=== PATIENT | male | born 1960 | race Caucasian/White ===

== ENCOUNTER 2019-09-24 14:43 | Emergency (ER) | payer OTHER ==
[2019-09-24 14:58] VITALS: BP 178/112
--- NOTE | 2019-09-24 15:43 | UC ---
Hand/Wrist HPI - HPI Summary HPI Summary: Patient is a 58yo male presenting with R thumb pain and laceration after it was crushed by a cement chute on a cement truck at work. States he was wearing thick gloves. Patient states that it bled immediately and felt sharp shooting pain. Denies numbness and tingling. Currently notes dull throbbing pain 4/10. Denies decreased ROM. Denies swelling. - History Of Current Complaint Chief Complaint: UCLaceration Stated Complaint: FINGER CRUSHED AT WORK Hx Obtained From: Patient Onset/Duration: Sudden Onset Severity Currently: Mild Pain Intensity: 4 Pain Scale Used: 0-10 Numeric - Allergies/Home Medications Allergies/Adverse Reactions: Allergies Allergy/AdvReac Type Severity Reaction Status Date / Time No Known Allergies Allergy Verified 09/24/19 14:58 Home Medications: Home Medications methylPREDNISolone TAB* [Medrol TAB*] 1 tab PO DAILY 09/24/19 [History Confirmed 09/24/19] PMH/Surg Hx/FS Hx/Imm Hx Previously Healthy: Yes - Surgical History Surgical History: None - Family History Known Family History: Positive: Unknown, Non-Contributory - Social History Occupation: Employed Full-time Alcohol Use: Occasionally Substance Use Type: None Smoking Status (MU): Never Smoked Tobacco Review of Systems All Other Systems Reviewed And Are Negative: No Skin: Positive: Other - R thumb laceration Respiratory: Positive: Negative Cardiovascular: Positive: Negative Musculoskeletal: Positive: Arthralgia - R thumb. Negative: Decreased ROM, Edema Neurological: Negative: Weakness, Paresthesia, Numbness Physical Exam Triage Information Reviewed: Yes Appearance: Well-Appearing, No Pain Distress, Well-Nourished Vital Signs: Initial Vital Signs Temp 101.1 F 09/24/19 14:53 Pulse 112 09/24/19 14:53 Resp 18 09/24/19 14:53 BP 178/112 09/24/19 14:53 Pulse Ox 99 09/24/19 14:53 Vital Signs (72 hours) 09/24/19 14:53 Temperature 99.1 F Pulse Rate 112 Respiratory 18 Rate Blood Pressure 178/112 (mmHg) O2 Sat by Pulse 99 Oximetry Vital Signs Reviewed: Yes Eyes: Positive: Conjunctiva Clear ENT: Positive: Hearing grossly normal Neck: Positive: Supple Respiratory: Positive: No respiratory distress Cardiovascular: Positive: Pulses Normal - strong radial pulses, Brisk Capillary Refill - normal capillary refill of R thumb Musculoskeletal: Positive: Strength Intact - R thumb, ROM Intact - R thumb, No Edema, Other: - mild tenderness to palpation of proximal R thumb Neurological Exam: Other - sensation grossly intact Neurological: Positive: Alert Psychological: Positive: Age Appropriate Behavior Skin: Positive: Other - approx 1.5cm laceration noted on dorsal aspect of proximal T thumb. minimal bleeding. Diagnostics - Radiology R thumb Radiology Interpretation Completed By: Radiologist Summary of Radiographic Findings: IMPRESSION: COMMINUTED FRACTURE OF THE PROXIMAL PHALANX OF THE FIRST DIGIT. Hand/Wrist Course/Dx - Course Course Of Treatment: Patient diagnosed with open comminuted fracture of proximal phalanx of first digit. I spoke with Dr. Ramsey who advised to have the wound irrigated, laceration loosely repaired, and finger securely splinted to immobilize thumb entirely. Also advised to have rocephin shot given and oral antibiotics started. All of this was carried out. Patient received one suture to close laceration on thumb. Tolerated procedure well. Patient instructed to follow up with ortho as soon as possible for further evaluation. Patient voiced understanding and agreed with treatment plan. - Differential Dx/Diagnosis Provider Diagnosis: Open fracture of thumb Discharge ED - Sign-Out/Discharge Documenting (check all that apply): Patient Departure All imaging exams completed and their final reports reviewed: Yes - Discharge Plan Condition: Stable Disposition: HOME Prescriptions: Cephalexin CAP* [Keflex CAP*] 500 mg PO TID #21 cap Patient Education Materials: Finger Fracture (ED) Forms: *Work Release Referrals: Vaibhav Ramsey MD [Medical Doctor] - As Soon As Possible Additional Instructions: As discussed, the xrays of the thumb did revealed multiple fractures. You received one stitch and a shot of antibiotics here today. You will also need to take Keflex as prescribed to prevent infection. You may also use over the counter pain medications as directed for relief of pain. Follow up with the orthopedic referral listed below tomorrow for further evaluation of the injury. DO NOT move the thumb, use the thumb, or bang it on anything. It is very important that you keep it immobilized in the splint until you follow up to avoid further damage and the need for surgery. Go to the emergency room if pain worsens or the thumb becomes cold and numb. - Billing Disposition and Condition Condition: STABLE Disposition: Home
[2019-09-24] MEDS ORDERED: Lidocaine 1% MPF ** 5 ML VIAL INJ ONE (16:13)
[2019-09-24] MEDS ORDERED: cefTRIAXone VIAL(*) 1,000 MG VIAL IM ONE (17:06)
[2019-09-24] MEDS ORDERED: Lidocaine 1% MPF ** 5 ML VIAL IM ONE (17:07)
== END 2019-09-24 17:30 | disposition home or self-care (01) ==
LOC: UCEAST 14:43
DX: S62.511B Displaced fracture of proximal phalanx of right thumb, initial encounter for open fracture (principal); X58.XXXA Exposure to other specified factors, initial encounter; Y92.812 Truck as the place of occurrence of the external cause
CPT/HCPCS: 99213; G0463; J0696

== ENCOUNTER 2019-09-27 11:02 | Emergency (ER) | payer OTHER ==
[2019-09-27 11:37] VITALS: BP 156/96
--- NOTE | 2019-09-27 13:10 | UC ---
Hand/Wrist HPI - HPI Summary HPI Summary: 59-year-old male presents for wound check. He was seen at this facility on for an open fracture to the right thumb. Patient states that he was not able to get a follow-up appointment with orthopedic surgery until 2018 and wanted to make sure that the wound was healing well. Patient received Rocephin IM and was started on a course of cephalexin which he has been taking according to directions. States he has some mild aching and throbbing of the thumb which is managed with [id number] analgesics. Denies fever, chills, numbness, or tingling. - History Of Current Complaint Chief Complaint: UCWounds Stated Complaint: WORK RELATED THUMB FOLLOW UP Time Seen by Provider: 09/27/19 12:12 Hx Obtained From: Patient Pain Intensity: 0 - Allergies/Home Medications Allergies/Adverse Reactions: Allergies Allergy/AdvReac Type Severity Reaction Status Date / Time No Known Allergies Allergy Verified 09/24/19 14:58 PMH/Surg Hx/FS Hx/Imm Hx Previously Healthy: Yes - Surgical History Surgical History: None - Family History Known Family History: Positive: Non-Contributory - Social History Occupation: Employed Full-time Lives: With Family Alcohol Use: Daily Alcohol Amount: a few beers a night Substance Use Type: None Smoking Status (MU): Never Smoked Tobacco Review of Systems All Other Systems Reviewed And Are Negative: Yes Constitutional: Negative: Fever, Chills Skin: Positive: Other - See HPI Respiratory: Positive: Negative Cardiovascular: Positive: Negative Gastrointestinal: Positive: Negative Genitourinary: Positive: Negative Neurovascular: Negative: Decreased Sensation Musculoskeletal: Positive: Edema, Other: - See HPI Is Patient Immunocompromised?: No Physical Exam - Summary Physical Exam Summary: GENERAL APPEARANCE: Well developed, well nourished, alert and cooperative, and appears to be in no acute distress. CARDIAC: Normal S1 and S2. No S3, S4 or murmurs. Rhythm is regular. There is no peripheral edema, cyanosis or pallor. Extremities are warm and well perfused. Capillary refill is less than 2 seconds. Peripheral pulses intact. LUNGS: Clear to auscultation without rales, rhonchi, wheezing or diminished breath sounds. ABDOMEN: Positive bowel sounds. Soft, nondistended, nontender. No guarding or rebound. No masses or hepatosplenomegally. MUSKULOSKELETAL: ROM intact to all extremities. No joint erythema or tenderness. Normal muscular development. Normal gait. EXTREMITIES: Well approximated laceration with single intact interrupted suture without erythema or drainage. Mild edema of the thumb. Circulation and sensation intact. SKIN: Skin normal color, texture and turgor. Triage Information Reviewed: Yes Vital Signs: Initial Vital Signs Temp 97.9 F 09/27/19 11:33 Pulse 70 09/27/19 11:33 Resp 16 09/27/19 11:33 BP 156/96 09/27/19 11:33 Pulse Ox 97 09/27/19 11:33 Vital Signs Reviewed: Yes Procedures - Splinting Right Upper Extremity Location: Right thumb Hand-Made Type: orthoglass Splint: thumb spica Pre-Proc Neuro Vasc Exam: normal Post-Proc Neuro Vasc Exam: normal Hand/Wrist Course/Dx - Course Course Of Treatment: 59-year-old male presents for wound check. He was seen at this facility on for an open fracture to the right thumb. Patient states that he was not able to get a follow-up appointment with orthopedic surgery until 2018 and wanted to make sure that the wound was healing well. Patient received Rocephin IM and was started on a course of cephalexin which he has been taking according to directions. States he has some mild aching and throbbing of the thumb which is managed with [id number] analgesics. Denies fever, chills, numbness, or tingling. Afebrile. Hypertensive otherwise vital signs stable. The dressing and splint that was previously applied was removed by the RN and the wound was cleaned. The patient had a well approximated laceration with single intact interrupted suture without erythema or drainage. There was some mild edema of the thumb. Circulation and sensation was intact. I dressed the wound with Xeroform gauze and a Telfa dressing. I then placed the patient in a thumb spica splint using Ortho-Glass. Circulation and sensation were intact pre -and post-application. Patient was instructed to continue his antibiotics as prescribed as well as use [id number] analgesics as needed for pain. He is to keep his appointment with orthopedic surgery in 2 days as scheduled. Anticipatory guidance and warning symptoms were reviewed with the patient. Verbalizes understanding and agrees with plan of care. - Differential Dx/Diagnosis Differential Diagnosis/HQI/PQRI: Fracture, Infection Provider Diagnosis: Open fracture of right thumb Discharge ED - Sign-Out/Discharge Documenting (check all that apply): Patient Departure All imaging exams completed and their final reports reviewed: No Studies - Discharge Plan Condition: Stable Disposition: HOME Patient Education Materials: Thumb Fracture (ED) Referrals: Lonnie Jackson MD [Primary Care Provider] - Vaibhav Ramsey MD [Medical Doctor] - 2 Days (As scheduled.) Additional Instructions: The laceration of your follow appears to be healing well with no signs of infection. Continue the antibiotics as prescribed. Leave the dressing and splint was applied in the clinic in place until you follow up with orthopedic surgery on Sunday. Do not get the splint wet. Rest the and as much as possible. Apply ice to the affected area for 15-20 minutes at least 4 times a day to help with the pain and swelling. Elevate the hand to help reduce swelling. Take acetaminophen (Tylenol) or ibuprofen (Advil, Motrin) according to directions as needed for pain. Follow up with orthopedic surgery in 2 days as scheduled. Seek immediate medical attention if you have severe pain not managed with pain medication, develop numbness or tingling in the hand or fingers, or have any worsening of symptoms. - Billing Disposition and Condition Condition: STABLE Disposition: Home
== END 2019-09-27 13:37 | disposition home or self-care (01) ==
LOC: UCEAST 11:02
DX: S62.501D Fracture of unspecified phalanx of right thumb, subsequent encounter for fracture with routine healing (principal); X58.XXXD Exposure to other specified factors, subsequent encounter
CPT/HCPCS: 99211; G0463